=== PATIENT | female | born 1965 | race Caucasian/White ===

== ENCOUNTER 2016-12-14 05:30 | Inpatient (IN) | payer OTHER ==
[~2016-12-14] VITALS: Ht 167.6 cm; Wt 69.9 kg
[2016-12-14] VITALS (11 sets, daily range): BP systolic 100–117; BP diastolic 49–69; PULSE 89–97; RESP 12–25; TEMP 97.6–97.8; O2SAT 89–96
[2016-12-14] MEDS ORDERED: CEFAZOLIN SOD 1 GM/ ISO 50 ML PREMIX IV ONE (07:00)
[2016-12-14] MEDS: ALBUTEROL SULFATE 0.083% 2.5 MG/3 ML VIAL.NEB INH SCH ×3 (08:00→19:56)
[2016-12-14] MEDS ORDERED: IPRATROPIUM/ALBUTEROL SULFATE 3 ML AMPUL.NEB INH ONE (08:00)
[2016-12-14] MEDS ORDERED: ALBUTEROL SULFATE 0.083% 2.5 MG/3 ML VIAL.NEB INH ONE (08:03)
[2016-12-14] MEDS ORDERED: IPRATROPIUM BROM 0.5 MG/2.5 ML VIAL.NEB (ATROVENT) INH ONE (08:03)
[2016-12-14] MEDS ORDERED: NORT75CA PO (08:22)
[2016-12-14] MEDS ORDERED: HYDR-4100 PO (08:22)
[2016-12-14] MEDS ORDERED: LISI-209 PO (08:22)
[2016-12-14] MEDS ORDERED: PREG75CA PO (08:22)
[2016-12-14] MEDS ORDERED: OMEP40CA33 PO (08:22)
[2016-12-14] MEDS ORDERED: PRO20 PO (08:22)
[2016-12-14] MEDS ORDERED: FURO-149 PO (08:22)
[2016-12-14] MEDS ORDERED: LEVO112T2 PO (08:22)
[2016-12-14] MEDS ORDERED: KETAMINE HCL 500 MG/10 ML VIAL ONE ×2 (08:45→16:00)
[2016-12-14] MEDS ORDERED: IOHEXOL 50 ML IV ONE (09:49)
[2016-12-14 10:12] LABS: ABG TOTAL HEMOGLOBIN 10.5 G/dL (12.0-18.0); BLOOD GAS BASE EXCESS -0.8 mmol/L (-3.0-3.0); BLOOD GAS COHb% 0.8 % (0.5-1.5); BLOOD GAS PH 7.439 (7.350-7.450); BLOOD O2Hb% 98.1 % (94.0-97.0)
[2016-12-14 11:51] LABS: ABG TOTAL HEMOGLOBIN 9.8 G/dL (12.0-18.0); BLOOD GAS COHb% 0.9 % (0.5-1.5); BLOOD GAS PH 7.418 (7.350-7.450)
[2016-12-14] MEDS ORDERED: HYDROcodone/ACETAMIN 5-325 MG TAB (NORCO/ VICODIN) PO PRN (12:00)
[2016-12-14 12:18] LABS: HEMOGLOBIN 9.6 g/dL (12.0-16.0)
[2016-12-14 12:26] LABS: CALCIUM 9.1 mg/dL (8.4-11.0); CREATININE 1.07 mg/dL (0.55-1.30); POTASSIUM 4.6 mmol/L (3.5-5.1)
[2016-12-14] MEDS: CEFAZOLIN 1 GM IVPB PREMIX 50 ML IV SCH ×2 (14:14→22:01)
[2016-12-14] MEDS: HYDROmorphone 1 MG INJ. 1 MG/ML AMPUL IVP PRN ×3 (14:15→23:44)
[2016-12-14] MEDS: D5/0.45 NS 1,000 ML IV SCH ×2 (14:22→22:02)
[2016-12-14] MEDS ORDERED: fentaNYL CITRATE/PF 100 MCG/2 ML AMP ONE (16:00)
[2016-12-14] MEDS ORDERED: BUPIVACAINE /PF 0.25% 30 ML VIAL INJ ONE (16:00)
[2016-12-14] MEDS ORDERED: LR 1,000 ML IV.SOLN IV ONE (16:00)
[2016-12-14] MEDS ORDERED: DEXAMETHASONE SOD PHOSPHATE 4 MG/ML VIAL ONE (16:00)
[2016-12-14] MEDS ORDERED: SUCCINYLCHOLINE CHLORIDE 20 MG/ML(QUELICIN) ONE (16:00)
[2016-12-14] MEDS ORDERED: ROCURONIUM BROMIDE 10 MG/ML (ZEMURON) ONE (16:00)
[2016-12-14] MEDS ORDERED: MIDAZOLAM HCL 5 MG/5 ML VIAL ONE (16:00)
[2016-12-14] MEDS ORDERED: SEVOFLURANE 15 MIN GAS INH ONE (16:00)
[2016-12-14] MEDS ORDERED: PROPOFOL 200MG/ 20ML VIAL (DIPRIVAN) IV ONE (16:00)
[2016-12-14 20:18] LABS: HEMOGLOBIN 9.3 g/dL (12.0-16.0)
[2016-12-14] MEDS: FAMOTIDINE PF 20 MG/2 ML VIAL IVP SCH (20:46)
[2016-12-15] VITALS (15 sets, daily range): BP systolic 96–129; BP diastolic 53–66; PULSE 92–108; RESP 12–24; TEMP 96.6–98.1; O2SAT 89–99
[2016-12-15] MEDS: ALBUTEROL SULFATE 0.083% 2.5 MG/3 ML VIAL.NEB INH SCH ×2 (00:01→07:09)
[2016-12-15] MEDS: HYDROmorphone 1 MG INJ. 1 MG/ML AMPUL IVP PRN ×2 (02:38→05:07)
[2016-12-15 04:43] LABS: ALBUMIN 3.6 g/dL (3.4-4.8); CALCIUM 8.9 mg/dL (8.4-11.0); CREATININE 0.93 mg/dL (0.55-1.30); POTASSIUM 4.9 mmol/L (3.5-5.1); TOTAL PROTEIN, SERUM 7.3 g/dL (6.4-8.3)
[2016-12-15 05:11] LABS: BASOPHILS % (AUTO) 0.1 % (0.0-2.0); EOSINOPHILS % (AUTO) 0.2 % (0.0-4.0); HEMATOCRIT 29.5 % (36-48); HEMOGLOBIN 9.2 g/dL (12.0-16.0); LYMPHOCYTES # (AUTO) 1.5 K/uL (1.0-5.5); LYMPHOCYTES % (AUTO) 10.5 % (20.5-51.5); MEAN CORPUSCULAR HEMOGLOBIN 24 pg (27-31); MEAN CORPUSCULAR HGB CONC 31 % (32-36); MEAN CORPUSCULAR VOLUME 77 fL (79.0-98.0); MONOCYTES % (AUTO) 6.9 % (1.7-9.3); NEUTROPHILS # (AUTO) 12.2 K/uL (1.8-7.7); NEUTROPHILS % (AUTO) 82.3 % (40.0-70.0); PLATELET COUNT (AUTO) 213 K/uL (130-430); RED BLOOD CELL COUNT(AUTO) 3.82 MIL/uL (4.2-6.2); RED CELL DISTRIBUTION WIDTH 18.3 % (9.0-15.0); WHITE BLOOD COUNT (AUTO) 14.8 K/uL (4.8-10.8)
[2016-12-15] MEDS: D5/0.45 NS 1,000 ML IV SCH ×2 (08:49→18:50)
[2016-12-15] MEDS: FAMOTIDINE PF 20 MG/2 ML VIAL IVP SCH ×2 (09:26→20:17)
[2016-12-15] MEDS: HYDROcodone/ACETAMIN 5-325 MG TAB (NORCO/ VICODIN) PO PRN (10:33)
[2016-12-15 12:08] LABS: HEMATOCRIT 29.1 % (36-48); HEMOGLOBIN 9.2 g/dL (12.0-16.0)
[2016-12-15] MEDS ORDERED: IPRATROPIUM/ALBUTEROL SULFATE 3 ML AMPUL.NEB INH PRN (12:45)
[2016-12-15] MEDS ORDERED: FLUoxetine HCL 20 MG CAPSULE (PROzac) PO ONE (13:00)
[2016-12-15] MEDS ORDERED: LEVOTHYROXINE SODIUM 0.112 MG TABLET PO ONE (13:15)
[2016-12-15] MEDS ORDERED: NORTRIPTYLINE HCL 25 MG CAPSULE PO ONE (13:15)
[2016-12-15] MEDS: PREGABALIN 25 MG CAPSULE (LYRICA) PO SCH ×3 (14:22→20:18)
[2016-12-15] MEDS: IPRATROPIUM/ALBUTEROL SULFATE 3 ML AMPUL.NEB INH SCH ×2 (15:59→19:39)
[2016-12-15] MEDS: NORTRIPTYLINE HCL 25 MG CAPSULE PO SCH (20:18)
[2016-12-16] VITALS (7 sets, daily range): BP systolic 100–135; BP diastolic 46–80; PULSE 99–113; RESP 16–20; TEMP 96.6–98.6; O2SAT 90–95
[2016-12-16] MEDS: D5/0.45 NS 1,000 ML IV SCH ×2 (05:33→21:18)
[2016-12-16] MEDS: LEVOTHYROXINE SODIUM 0.112 MG TABLET PO SCH (06:05)
[2016-12-16 06:23] LABS: BASOPHILS # (AUTO) 0.1 K/uL (0.0-0.2); BASOPHILS % (AUTO) 0.5 % (0.0-2.0); EOSINOPHILS # (AUTO) 0.1 K/uL (0.0-0.4); EOSINOPHILS % (AUTO) 0.6 % (0.0-4.0); HEMATOCRIT 30.8 % (36-48); HEMOGLOBIN 9.6 g/dL (12.0-16.0); LYMPHOCYTES # (AUTO) 2.4 K/uL (1.0-5.5); LYMPHOCYTES % (AUTO) 13.5 % (20.5-51.5); MEAN CORPUSCULAR HEMOGLOBIN 24 pg (27-31); MEAN CORPUSCULAR HGB CONC 31 % (32-36); MEAN CORPUSCULAR VOLUME 77 fL (79.0-98.0); MONOCYTES # (AUTO) 1.5 K/uL (0.0-1.0); MONOCYTES % (AUTO) 8.5 % (1.7-9.3); NEUTROPHILS # (AUTO) 13.8 K/uL (1.8-7.7); PLATELET COUNT (AUTO) 223 K/uL (130-430); RED BLOOD CELL COUNT(AUTO) 3.99 MIL/uL (4.2-6.2); RED CELL DISTRIBUTION WIDTH 18.3 % (9.0-15.0); WHITE BLOOD COUNT (AUTO) 17.9 K/uL (4.8-10.8)
[2016-12-16 06:30] LABS: ALBUMIN 3.5 g/dL (3.4-4.8); CREATININE 0.89 mg/dL (0.55-1.30); POTASSIUM 4.2 mmol/L (3.5-5.1); TOTAL BILIRUBIN 1.8 mg/dL (0.0-1.0); TOTAL PROTEIN, SERUM 7.2 g/dL (6.4-8.3)
[2016-12-16] MEDS: IPRATROPIUM/ALBUTEROL SULFATE 3 ML AMPUL.NEB INH SCH ×4 (07:03→20:10)
[2016-12-16 08:27] LABS: NEUTROPHILS % (AUTO) 76.9 % (40.0-70.0)
[2016-12-16] MEDS: PREGABALIN 25 MG CAPSULE (LYRICA) PO SCH ×4 (09:08→21:14)
[2016-12-16] MEDS: FAMOTIDINE PF 20 MG/2 ML VIAL IVP SCH ×2 (09:12→21:14)
[2016-12-16] MEDS: NORTRIPTYLINE HCL 25 MG CAPSULE PO SCH ×2 (09:25→21:13)
[2016-12-16] MEDS: FLUoxetine HCL 20 MG CAPSULE (PROzac) PO SCH (09:25)
[2016-12-16] MEDS: ONDANSETRON HCL 4 MG/2 ML VIAL IVP PRN ×2 (10:46→21:17)
[2016-12-16] MEDS: HYDROcodone/ACETAMIN 5-325 MG TAB (NORCO/ VICODIN) PO PRN (10:55)
[2016-12-16] MEDS ORDERED: MILK OF MAGNESIA 30 ML UDC PO ONE (22:15)
[2016-12-17] MEDS: D5/0.45 NS 1,000 ML IV SCH (00:02)
[2016-12-17 00:20] VITALS: BP 111/73; PULSE 89; RESP 18; TEMP 98.2; O2SAT 91
[2016-12-17] MEDS: HYDROcodone/ACETAMIN 5-325 MG TAB (NORCO/ VICODIN) PO PRN ×5 (01:03→11:52)
[2016-12-17 03:34] VITALS: BP 136/84; PULSE 99; RESP 18; TEMP 98.4
[2016-12-17] MEDS: ONDANSETRON HCL 4 MG/2 ML VIAL IVP PRN ×3 (04:56→21:43)
[2016-12-17] MEDS: LEVOTHYROXINE SODIUM 0.112 MG TABLET PO SCH (06:07)
[2016-12-17 06:23] LABS: ALBUMIN 3.3 g/dL (3.4-4.8); CALCIUM 8.9 mg/dL (8.4-11.0); CREATININE 0.83 mg/dL (0.55-1.30); TOTAL BILIRUBIN 1.6 mg/dL (0.0-1.0); TOTAL PROTEIN, SERUM 7.1 g/dL (6.4-8.3)
[2016-12-17 06:24] LABS: BASOPHILS # (AUTO) 0.1 K/uL (0.0-0.2); BASOPHILS % (AUTO) 0.3 % (0.0-2.0); EOSINOPHILS % (AUTO) 0.2 % (0.0-4.0); HEMATOCRIT 27.6 % (36-48); HEMOGLOBIN 8.4 g/dL (12.0-16.0); LYMPHOCYTES # (AUTO) 1.8 K/uL (1.0-5.5); LYMPHOCYTES % (AUTO) 10.2 % (20.5-51.5); MEAN CORPUSCULAR HEMOGLOBIN 23 pg (27-31); MEAN CORPUSCULAR HGB CONC 30 % (32-36); MEAN CORPUSCULAR VOLUME 76 fL (79.0-98.0); MONOCYTES # (AUTO) 1.4 K/uL (0.0-1.0); MONOCYTES % (AUTO) 7.7 % (1.7-9.3); NEUTROPHILS # (AUTO) 14.5 K/uL (1.8-7.7); NEUTROPHILS % (AUTO) 81.6 % (40.0-70.0); PLATELET COUNT (AUTO) 232 K/uL (130-430); RED BLOOD CELL COUNT(AUTO) 3.62 MIL/uL (4.2-6.2); RED CELL DISTRIBUTION WIDTH 17.9 % (9.0-15.0); WHITE BLOOD COUNT (AUTO) 17.8 K/uL (4.8-10.8)
[2016-12-17] MEDS: IPRATROPIUM/ALBUTEROL SULFATE 3 ML AMPUL.NEB INH SCH ×4 (07:00→19:00)
[2016-12-17 08:00] VITALS: BP 140/85; PULSE 104; RESP 18; TEMP 97.6; O2SAT 92
[2016-12-17] MEDS: LACTULOSE 20 GM/30 ML UDC PO SCH ×2 (09:16→21:54)
[2016-12-17] MEDS: FAMOTIDINE PF 20 MG/2 ML VIAL IVP SCH ×2 (09:16→21:47)
[2016-12-17] MEDS: FLUoxetine HCL 20 MG CAPSULE (PROzac) PO SCH (09:16)
[2016-12-17] MEDS: PREGABALIN 25 MG CAPSULE (LYRICA) PO SCH ×3 (09:16→21:48)
[2016-12-17] MEDS: NORTRIPTYLINE HCL 25 MG CAPSULE PO SCH ×2 (09:19→21:50)
[2016-12-17 12:00] VITALS: BP 129/76; PULSE 105; RESP 20; TEMP 97.7; O2SAT 92
[2016-12-17 12:12] VITALS: Ht 167.6 cm; Wt 69.9 kg
[2016-12-17] MEDS ORDERED: BISACODYL 10 MG/SUPPOSITORY RC ONE (14:30)
[2016-12-17 16:00] VITALS: BP 102/90; PULSE 84; RESP 16; TEMP 98; O2SAT 97
[2016-12-17] MEDS ORDERED: NA PHOS,M-B/NA PHOS,DI-BA 118 ML (FLEET ENEMA) RC ONE (16:30)
[2016-12-17 20:00] VITALS: BP 133/81; PULSE 103; RESP 19; TEMP 97.9; O2SAT 94
[2016-12-17] MEDS ORDERED: MILK OF MAGNESIA 30 ML UDC PO PRN (22:15)
[2016-12-18] VITALS (12 sets, daily range): BP systolic 80–139; BP diastolic 57–86; PULSE 74–110; RESP 16–26; TEMP 96.4–98; O2SAT 92–98
[2016-12-18] MEDS: ONDANSETRON HCL 4 MG/2 ML VIAL IVP PRN (02:26)
[2016-12-18 05:54] LABS: BASOPHILS % (AUTO) 0.2 % (0.0-2.0); EOSINOPHILS % (AUTO) 0.2 % (0.0-4.0); HEMATOCRIT 25.9 % (36-48); HEMOGLOBIN 8.1 g/dL (12.0-16.0); LYMPHOCYTES # (AUTO) 2.2 K/uL (1.0-5.5); LYMPHOCYTES % (AUTO) 12.3 % (20.5-51.5); MEAN CORPUSCULAR HEMOGLOBIN 24 pg (27-31); MEAN CORPUSCULAR HGB CONC 31 % (32-36); MEAN CORPUSCULAR VOLUME 76 fL (79.0-98.0); MONOCYTES # (AUTO) 1.7 K/uL (0.0-1.0); MONOCYTES % (AUTO) 9.2 % (1.7-9.3); NEUTROPHILS # (AUTO) 14.3 K/uL (1.8-7.7); NEUTROPHILS % (AUTO) 78.1 % (40.0-70.0); PLATELET COUNT (AUTO) 280 K/uL (130-430); RED BLOOD CELL COUNT(AUTO) 3.42 MIL/uL (4.2-6.2); RED CELL DISTRIBUTION WIDTH 18.7 % (9.0-15.0); WHITE BLOOD COUNT (AUTO) 18.2 K/uL (4.8-10.8)
[2016-12-18 06:12] LABS: CALCIUM 8.8 mg/dL (8.4-11.0); CHLORIDE 101 mmol/L (98-107); CREATININE 0.87 mg/dL (0.55-1.30); GLUCOSE 122 mg/dL (70-99); POTASSIUM 3.3 mmol/L (3.5-5.1); SODIUM SERUM 133 mmol/L (136-145); THYROID STIMULATING HORMONE 2.11 uIu/mL (0.34-4.82); UREA NITROGEN, BLOOD 16 mg/dL (8-21)
[2016-12-18 06:13] LABS: GFR AFRICAN AMERICAN 88 mL/min (>90)
[2016-12-18 06:14] LABS: ANION GAP < 3 (5-15)
[2016-12-18] MEDS: LEVOTHYROXINE SODIUM 0.112 MG TABLET PO SCH (07:00)
[2016-12-18] MEDS: IPRATROPIUM/ALBUTEROL SULFATE 3 ML AMPUL.NEB INH SCH ×3 (07:37→15:00)
[2016-12-18 09:03] LABS: INR 1.2 (0.8-1.2)
[2016-12-18] MEDS ORDERED: DIATR MEGLU/DIATRIZ SOD 30 ML SOLUTION PO ONE (09:08)
[2016-12-18] MEDS: KCL 20 mEq in D5/0.45NS 1000mL 1,000 ML IV SCH ×2 (12:35→18:45)
[2016-12-18] MEDS: cefOXitin SODIUM 1 GM in D5W 50 ML IV SCH ×3 (12:35→23:38)
[2016-12-18] MEDS: HYDROmorphone 1 MG INJ. 1 MG/ML AMPUL IVP PRN (12:40)
[2016-12-18] MEDS: FAMOTIDINE PF 20 MG/2 ML VIAL IVP SCH ×2 (12:48→20:55)
[2016-12-18] MEDS ORDERED: NS 500 ML IV ONE (16:00)
[2016-12-18] MEDS: LACTULOSE 20 GM/30 ML UDC PO SCH (20:56)
[2016-12-18] MEDS: NORTRIPTYLINE HCL 25 MG CAPSULE PO SCH (20:56)
[2016-12-18 23:48] LABS: BILIRUBIN,URINE 2+ (NEGATIVE); BLOOD, URINE NEGATIVE (NEGATIVE); CLARITY/URINE CLOUDY (CLEAR); COLOR,URINE YELLOW (YELLOW); GLUCOSE,URINE NEGATIVE (NEGATIVE); KETONES,URINE 1+ (NEGATIVE); LEUKOCYTE ESTERASE ,URINE NEGATIVE (NEGATIVE); NITRITE, URINE NEGATIVE (NEGATIVE); PROTEIN URINE TRACE (NEGATIVE); UROBILINOGEN,URINE >=8 (0.2-1.0)
[2016-12-18 23:53] LABS: BACTERIA,URINE MANY /HPF (None Seen); RBC,URINE NONE SEEN /HPF (0-3)
[2016-12-18 23:54] LABS: URINE AMORPHOUS URATE 3+ /HPF (None Seen)
[2016-12-18 23:55] LABS: MUCUS,URINE None Seen /LPF (None Seen)
[2016-12-19 00:24] VITALS: BP 104/63; PULSE 87; RESP 17; TEMP 98.4; O2SAT 95
[2016-12-19 04:00] VITALS: BP 136/84; PULSE 78; RESP 18; TEMP 97.8; O2SAT 98
[2016-12-19] MEDS: KCL 20 mEq in D5/0.45NS 1000mL 1,000 ML IV SCH ×3 (04:23→20:51)
[2016-12-19] MEDS: cefOXitin SODIUM 1 GM in D5W 50 ML IV SCH ×3 (06:04→17:13)
[2016-12-19] MEDS: LEVOTHYROXINE SODIUM 0.112 MG TABLET PO SCH (06:04)
[2016-12-19 06:30] VITALS: BP 105/59; PULSE 93; RESP 20; TEMP 97.6; O2SAT 95
[2016-12-19 06:44] LABS: BASOPHILS # (AUTO) 0.2 K/uL (0.0-0.2); EOSINOPHILS # (AUTO) 0.1 K/uL (0.0-0.4); EOSINOPHILS % (AUTO) 0.4 % (0.0-4.0); HEMATOCRIT 26.3 % (36-48); HEMOGLOBIN 8.2 g/dL (12.0-16.0); LYMPHOCYTES # (AUTO) 2.4 K/uL (1.0-5.5); LYMPHOCYTES % (AUTO) 13.8 % (20.5-51.5); MEAN CORPUSCULAR HEMOGLOBIN 24 pg (27-31); MEAN CORPUSCULAR HGB CONC 31 % (32-36); MEAN CORPUSCULAR VOLUME 77 fL (79.0-98.0); MONOCYTES # (AUTO) 1.6 K/uL (0.0-1.0); MONOCYTES % (AUTO) 9.1 % (1.7-9.3); NEUTROPHILS % (AUTO) 75.7 % (40.0-70.0); PLATELET COUNT (AUTO) 233 K/uL (130-430); RED BLOOD CELL COUNT(AUTO) 3.41 MIL/uL (4.2-6.2); RED CELL DISTRIBUTION WIDTH 17.8 % (9.0-15.0); WHITE BLOOD COUNT (AUTO) 17.3 K/uL (4.8-10.8)
[2016-12-19 06:58] LABS: ALANINE AMINOTRANSFERASE 27 U/L (12-78); ALBUMIN 2.6 g/dL (3.4-4.8); ASPARTATE AMINOTRANSFERASE 31 U/L (10-37); CALCIUM 8.2 mg/dL (8.4-11.0); CHLORIDE 104 mmol/L (98-107); CREATININE 0.96 mg/dL (0.55-1.30); GLUCOSE 132 mg/dL (70-99); POTASSIUM 3.4 mmol/L (3.5-5.1); SODIUM SERUM 135 mmol/L (136-145); TOTAL BILIRUBIN 1.5 mg/dL (0.0-1.0); TOTAL PROTEIN, SERUM 6.1 g/dL (6.4-8.3); UREA NITROGEN, BLOOD 19 mg/dL (8-21)
[2016-12-19] MEDS: IPRATROPIUM/ALBUTEROL SULFATE 3 ML AMPUL.NEB INH SCH ×4 (07:00→20:07)
[2016-12-19 07:06] LABS: INR 1.2 (0.8-1.2); PROTHROMBIN TIME 12.8 SECS (9.5-12.5)
[2016-12-19 07:16] LABS: ANION GAP < 3 (5-15); GFR AFRICAN AMERICAN 78 mL/min (>90)
[2016-12-19] MEDS: NACL 0.9% 1,000 ML IV SCH ×2 (08:10→09:06)
[2016-12-19] MEDS ORDERED: ONDANSETRON HCL 4 MG/2 ML VIAL IVP PRN (08:15)
[2016-12-19] MEDS ORDERED: HYDROmorphone 1 MG INJ. 1 MG/ML AMPUL IVP PRN (08:15)
[2016-12-19] MEDS ORDERED: HYDROmorphone 2 MG/ML VIAL IVP PRN ×2 (08:15)
[2016-12-19] MEDS: LACTULOSE 20 GM/30 ML UDC PO SCH ×2 (09:00→20:51)
[2016-12-19] MEDS: NORTRIPTYLINE HCL 25 MG CAPSULE PO SCH ×2 (09:00→20:51)
[2016-12-19] MEDS: FAMOTIDINE PF 20 MG/2 ML VIAL IVP SCH ×2 (09:00→20:51)
[2016-12-19 11:07] LABS: HEPATITIS B CORE AB, TOTAL Negative (Negative); HEPATITIS B SURFACE AG Negative (Negative); HEPATITIS C VIRUS AB <0.1 s/co ratio (0.0-0.9)
[2016-12-19] MEDS: HYDROmorphone 1 MG INJ. 1 MG/ML AMPUL IVP PRN (11:58)
[2016-12-19 12:32] VITALS: BP 118/72; PULSE 90; RESP 18; TEMP 97.4; O2SAT 98
[2016-12-19] MEDS ORDERED: ROCURONIUM BROMIDE 10 MG/ML (ZEMURON) ONE (14:00)
[2016-12-19] MEDS ORDERED: fentaNYL CITRATE 250 MCG/5 ML AMP ONE (14:00)
[2016-12-19] MEDS ORDERED: NS IRRIG SOLN 1000 ML IR ONE (14:00)
[2016-12-19] MEDS ORDERED: ONDANSETRON HCL 4 MG/2 ML VIAL ONE (14:00)
[2016-12-19] MEDS ORDERED: BUPIVACAINE /PF 0.25% 30 ML VIAL INJ ONE (14:00)
[2016-12-19] MEDS ORDERED: DEXAMETHASONE SOD PHOSPHATE 4 MG/ML VIAL ONE (14:00)
[2016-12-19] MEDS ORDERED: LR 1,000 ML IV.SOLN IV ONE (14:00)
[2016-12-19] MEDS ORDERED: SEVOFLURANE 15 MIN GAS INH ONE (14:00)
[2016-12-19] MEDS ORDERED: NS 1000 ML BAG IV ONE (14:00)
[2016-12-19] MEDS ORDERED: PROPOFOL 200MG/ 20ML VIAL (DIPRIVAN) IV ONE (14:00)
[2016-12-19] MEDS ORDERED: MIDAZOLAM HCL 5 MG/5 ML VIAL ONE (14:00)
[2016-12-19 17:04] VITALS: BP 103/56; PULSE 90; RESP 18; TEMP 97.2; O2SAT 90
[2016-12-19 20:00] VITALS: BP 97/68; PULSE 93; RESP 20; O2SAT 93
[2016-12-20] MEDS: cefOXitin SODIUM 1 GM in D5W 50 ML IV SCH ×2 (00:51→06:06)
[2016-12-20 01:09] VITALS: BP 92/57; PULSE 88; RESP 20; TEMP 98; O2SAT 95
[2016-12-20 04:08] VITALS: BP 97/53; PULSE 83; RESP 16; TEMP 96.1; O2SAT 97
[2016-12-20] MEDS: LEVOTHYROXINE SODIUM 0.112 MG TABLET PO SCH (06:06)
[2016-12-20 06:48] LABS: BASOPHILS # (AUTO) 0.1 K/uL (0.0-0.2); BASOPHILS % (AUTO) 0.3 % (0.0-2.0); HEMOGLOBIN 9.4 g/dL (12.0-16.0); LYMPHOCYTES # (AUTO) 1.8 K/uL (1.0-5.5); LYMPHOCYTES % (AUTO) 9.7 % (20.5-51.5); MEAN CORPUSCULAR HEMOGLOBIN 26 pg (27-31); MEAN CORPUSCULAR HGB CONC 32 % (32-36); MEAN CORPUSCULAR VOLUME 80 fL (79.0-98.0); MONOCYTES # (AUTO) 1.1 K/uL (0.0-1.0); MONOCYTES % (AUTO) 5.8 % (1.7-9.3); NEUTROPHILS % (AUTO) 84.2 % (40.0-70.0); PLATELET COUNT (AUTO) 210 K/uL (130-430); RED BLOOD CELL COUNT(AUTO) 3.65 MIL/uL (4.2-6.2); RED CELL DISTRIBUTION WIDTH 18.6 % (9.0-15.0)
[2016-12-20 07:20] LABS: CALCIUM 8.2 mg/dL (8.4-11.0); CREATININE 0.83 mg/dL (0.55-1.30); POTASSIUM 4.1 mmol/L (3.5-5.1)
[2016-12-20] MEDS: IPRATROPIUM/ALBUTEROL SULFATE 3 ML AMPUL.NEB INH SCH ×2 (07:35→19:56)
[2016-12-20 07:37] LABS: ALBUMIN 2.6 g/dL (3.4-4.8); TOTAL BILIRUBIN 1.6 mg/dL (0.0-1.0); TOTAL PROTEIN, SERUM 5.8 g/dL (6.4-8.3)
[2016-12-20 08:00] VITALS: BP 111/66; PULSE 83; RESP 15; TEMP 97.2; O2SAT 100
[2016-12-20] MEDS: KCL 20 mEq in D5/0.45NS 1000mL 1,000 ML IV SCH (08:04)
[2016-12-20] MEDS: LACTULOSE 20 GM/30 ML UDC PO SCH (09:11)
[2016-12-20] MEDS: FAMOTIDINE PF 20 MG/2 ML VIAL IVP SCH ×2 (09:11→21:03)
[2016-12-20] MEDS: NORTRIPTYLINE HCL 25 MG CAPSULE PO SCH (09:12)
[2016-12-20 12:18] VITALS: BP 109/62; PULSE 86; RESP 17; TEMP 97.5; O2SAT 100
[2016-12-20] MEDS: metroNIDAZOLE 500 mg/NS 100 ML IV SCH ×2 (15:05→22:23)
[2016-12-20] MEDS: PIPERACILLIN/TAZO 4.5GM/DEX-IS 100 ML IV SCH ×2 (15:30→23:28)
[2016-12-20 16:24] VITALS: BP 111/67; PULSE 89; RESP 18; TEMP 97.8; O2SAT 100
[2016-12-20] MEDS ORDERED: D5NS 1,000 ML IV ONE (20:00)
[2016-12-20 20:10] VITALS: BP 130/75; PULSE 89; RESP 16; TEMP 98; O2SAT 95
[2016-12-20] MEDS: KCL 20 mEq in D5NS 1000 mL 1,000 ML IV SCH (21:03)
[2016-12-20] MEDS: ALBUMIN HUMAN 25% 50 ML IV SCH (21:03)
[2016-12-20] MEDS: HYDROmorphone 1 MG INJ. 1 MG/ML AMPUL IVP PRN (23:03)
[2016-12-21 00:41] VITALS: BP 116/66; PULSE 82; RESP 18; TEMP 98; O2SAT 100
[2016-12-21 04:23] VITALS: BP 126/78; PULSE 114; RESP 17; TEMP 98.4; O2SAT 99
[2016-12-21] MEDS: ALBUMIN HUMAN 25% 50 ML IV SCH ×2 (04:42→12:25)
[2016-12-21] MEDS: metroNIDAZOLE 500 mg/NS 100 ML IV SCH ×3 (05:36→21:20)
[2016-12-21] MEDS: KCL 20 mEq in D5NS 1000 mL 1,000 ML IV SCH ×2 (06:00→16:00)
[2016-12-21 06:32] LABS: CREATININE 0.9 mg/dL (0.55-1.30)
[2016-12-21] MEDS: PIPERACILLIN/TAZO 4.5GM/DEX-IS 100 ML IV SCH ×3 (06:37→22:44)
[2016-12-21] MEDS: LEVOTHYROXINE SODIUM 0.112 MG TABLET PO SCH (06:37)
[2016-12-21 06:42] LABS: BASOPHILS # (AUTO) 0.1 K/uL (0.0-0.2); BASOPHILS % (AUTO) 0.4 % (0.0-2.0); EOSINOPHILS # (AUTO) 0.2 K/uL (0.0-0.4); HEMATOCRIT 29.9 % (36-48); HEMOGLOBIN 9.3 g/dL (12.0-16.0); LYMPHOCYTES % (AUTO) 16.9 % (20.5-51.5); MEAN CORPUSCULAR HEMOGLOBIN 25 pg (27-31); MEAN CORPUSCULAR HGB CONC 31 % (32-36); MEAN CORPUSCULAR VOLUME 80 fL (79.0-98.0); MONOCYTES # (AUTO) 1.4 K/uL (0.0-1.0); MONOCYTES % (AUTO) 7.6 % (1.7-9.3); NEUTROPHILS # (AUTO) 13.3 K/uL (1.8-7.7); NEUTROPHILS % (AUTO) 74.1 % (40.0-70.0); PLATELET COUNT (AUTO) 224 K/uL (130-430); RED BLOOD CELL COUNT(AUTO) 3.73 MIL/uL (4.2-6.2); RED CELL DISTRIBUTION WIDTH 18.7 % (9.0-15.0)
[2016-12-21] MEDS: IPRATROPIUM/ALBUTEROL SULFATE 3 ML AMPUL.NEB INH SCH ×4 (07:00→21:06)
[2016-12-21] MEDS: LACTOBACILLUS RHAMNOSUS GG 1 CAP CAPSULE PO SCH ×2 (09:30→21:19)
[2016-12-21] MEDS: FAMOTIDINE PF 20 MG/2 ML VIAL IVP SCH ×2 (09:30→21:19)
[2016-12-21] MEDS: HYDROmorphone 1 MG INJ. 1 MG/ML AMPUL IVP PRN (10:47)
[2016-12-21 12:59] VITALS: BP 114/65; PULSE 91; RESP 16; TEMP 97.8; O2SAT 92
[2016-12-21] MEDS ORDERED: NORMAL SALINE 10 ML VIAL INJ ONE (17:15)
[2016-12-21 17:18] VITALS: BP 114/65; PULSE 91
[2016-12-21] MEDS ORDERED: NS 250 ML IV ONE (17:45)
[2016-12-21 20:00] VITALS: BP 116/61; PULSE 90; RESP 20; TEMP 98.3; O2SAT 93
[2016-12-21 21:56] LABS: BLOOD, URINE 3+ (NEGATIVE); CLARITY/URINE HAZY (CLEAR); COLOR,URINE AMBER (YELLOW); GLUCOSE,URINE NEGATIVE (NEGATIVE); KETONES,URINE TRACE (NEGATIVE); LEUKOCYTE ESTERASE ,URINE NEGATIVE (NEGATIVE); NITRITE, URINE NEGATIVE (NEGATIVE); PROTEIN URINE 2+ (NEGATIVE)
[2016-12-21 22:40] LABS: BILIRUBIN,URINE NEGATIVE (NEGATIVE)
[2016-12-21 22:41] LABS: RBC,URINE >100 /HPF (0-3)
[2016-12-21 22:42] LABS: BACTERIA,URINE FEW /HPF (None Seen); MUCUS,URINE None Seen /LPF (None Seen); WBC,URINE 0-3 /HPF (0-3)
[2016-12-21 22:43] LABS: URIC ACID CRYSTALS,URINE 0-10 /HPF (None Seen)
[2016-12-22] VITALS (7 sets, daily range): BP systolic 103–136; BP diastolic 64–76; PULSE 61–98; RESP 16–21; TEMP 96.6–98.3; O2SAT 92–99
[2016-12-22 03:06] LABS: AFP, TUMOR MARKER 2.2 ng/mL (0.0-8.3); CEA 4.6 ng/mL (0.0-4.7)
[2016-12-22 05:13] LABS: FERRITIN 52 ng/mL (15-150)
[2016-12-22] MEDS: PIPERACILLIN/TAZO 4.5GM/DEX-IS 100 ML IV SCH ×3 (05:13→21:14)
[2016-12-22] MEDS: LEVOTHYROXINE SODIUM 0.112 MG TABLET PO SCH (06:06)
[2016-12-22] MEDS: metroNIDAZOLE 500 mg/NS 100 ML IV SCH ×3 (06:06→21:14)
[2016-12-22] MEDS: IPRATROPIUM/ALBUTEROL SULFATE 3 ML AMPUL.NEB INH SCH ×4 (07:07→19:00)
[2016-12-22] MEDS ORDERED: ACETAMINOPHEN 325 MG TABLET PO PRN (08:30)
[2016-12-22 09:14] LABS: HEMATOCRIT 30.8 % (36-48); HEMOGLOBIN 9.5 g/dL (12.0-16.0); MEAN CORPUSCULAR HEMOGLOBIN 25 pg (27-31); MEAN CORPUSCULAR HGB CONC 31 % (32-36); MEAN CORPUSCULAR VOLUME 80 fL (79.0-98.0); PLATELET COUNT (AUTO) 237 K/uL (130-430); RED BLOOD CELL COUNT(AUTO) 3.83 MIL/uL (4.2-6.2); RED CELL DISTRIBUTION WIDTH 19.5 % (9.0-15.0); WHITE BLOOD COUNT (AUTO) 14.6 K/uL (4.8-10.8)
[2016-12-22 09:31] LABS: CALCIUM 8.2 mg/dL (8.4-11.0); CREATININE 0.83 mg/dL (0.55-1.30); POTASSIUM 3.8 mmol/L (3.5-5.1)
[2016-12-22 09:45] LABS: ATYPICAL LYMPHOCYTES % 4 % (0-0); BAND % (MANUAL) 3 % (0-6); BASOPHILS % (MANUAL) 0 % (0-2); EOSINOPHILS % (MANUAL) 1 % (0-7); LYMPHOCYTES % (MANUAL) 16 % (20-46); MONOCYTES % (MANUAL) 10 % (0-11)
[2016-12-22] MEDS: LACTOBACILLUS RHAMNOSUS GG 1 CAP CAPSULE PO SCH ×2 (10:15→20:10)
[2016-12-22] MEDS: FAMOTIDINE 20 MG TABLET PO SCH ×2 (10:15→20:10)
[2016-12-22] MEDS: KCL 20 mEq in D5NS 1000 mL 1,000 ML IV SCH (10:18)
[2016-12-22 16:53] LABS: BLOOD, URINE 3+ (NEGATIVE); CLARITY/URINE CLEAR (CLEAR); COLOR,URINE AMBER (YELLOW); GLUCOSE,URINE NEGATIVE (NEGATIVE); KETONES,URINE TRACE (NEGATIVE); LEUKOCYTE ESTERASE ,URINE NEGATIVE (NEGATIVE); NITRITE, URINE NEGATIVE (NEGATIVE); PH,URINE 5.5 (5.0-8.0); PROTEIN URINE 1+ (NEGATIVE)
[2016-12-22 16:59] LABS: UROBILINOGEN,URINE >=8 (0.2-1.0)
[2016-12-22 17:11] LABS: BILIRUBIN,URINE 1+ (NEGATIVE)
[2016-12-22 17:46] LABS: BACTERIA,URINE FEW /HPF (None Seen)
[2016-12-22 17:47] LABS: MUCUS,URINE 1+ /LPF (None Seen)
[2016-12-23] VITALS: BP 100/60; PULSE 85; RESP 18; TEMP 97.2; O2SAT 96
[2016-12-23] MEDS: KCL 20 mEq in D5NS 1000 mL 1,000 ML IV SCH (01:39)
[2016-12-23 04:06] VITALS: BP 122/82; PULSE 85; RESP 22; TEMP 97; O2SAT 94
[2016-12-23] MEDS: PIPERACILLIN/TAZO 4.5GM/DEX-IS 100 ML IV SCH (05:34)
[2016-12-23] MEDS: metroNIDAZOLE 500 mg/NS 100 ML IV SCH ×2 (05:34→14:30)
[2016-12-23 06:31] LABS: BASOPHILS # (AUTO) 0.1 K/uL (0.0-0.2); BASOPHILS % (AUTO) 0.7 % (0.0-2.0); EOSINOPHILS # (AUTO) 0.2 K/uL (0.0-0.4); EOSINOPHILS % (AUTO) 1.4 % (0.0-4.0); HEMATOCRIT 30.2 % (36-48); HEMOGLOBIN 9.4 g/dL (12.0-16.0); LYMPHOCYTES # (AUTO) 2.4 K/uL (1.0-5.5); LYMPHOCYTES % (AUTO) 16.7 % (20.5-51.5); MEAN CORPUSCULAR HEMOGLOBIN 25 pg (27-31); MEAN CORPUSCULAR HGB CONC 31 % (32-36); MEAN CORPUSCULAR VOLUME 80 fL (79.0-98.0); MONOCYTES # (AUTO) 1.2 K/uL (0.0-1.0); MONOCYTES % (AUTO) 8.4 % (1.7-9.3); NEUTROPHILS # (AUTO) 10.7 K/uL (1.8-7.7); NEUTROPHILS % (AUTO) 72.8 % (40.0-70.0); PLATELET COUNT (AUTO) 254 K/uL (130-430); RED BLOOD CELL COUNT(AUTO) 3.79 MIL/uL (4.2-6.2); RED CELL DISTRIBUTION WIDTH 19.2 % (9.0-15.0); WHITE BLOOD COUNT (AUTO) 14.6 K/uL (4.8-10.8)
[2016-12-23] MEDS: IPRATROPIUM/ALBUTEROL SULFATE 3 ML AMPUL.NEB INH SCH ×3 (06:34→15:21)
[2016-12-23] MEDS: LEVOTHYROXINE SODIUM 0.112 MG TABLET PO SCH (06:40)
[2016-12-23 06:41] LABS: ALBUMIN 2.8 g/dL (3.4-4.8); CALCIUM 8.4 mg/dL (8.4-11.0); CREATININE 0.71 mg/dL (0.55-1.30); TOTAL BILIRUBIN 1.3 mg/dL (0.0-1.0); TOTAL PROTEIN, SERUM 5.8 g/dL (6.4-8.3)
[2016-12-23] MEDS: LACTOBACILLUS RHAMNOSUS GG 1 CAP CAPSULE PO SCH (08:54)
[2016-12-23] MEDS: FAMOTIDINE 20 MG TABLET PO SCH (08:55)
[2016-12-23] MEDS ORDERED: FUROSEMIDE 40 MG TABLET PO SCH (09:00)
[2016-12-23] MEDS ORDERED: AMOXICILLIN/CLAVULANATE POTASSIUM 875 MG TABLET PO SCH (09:00)
[2016-12-23 10:42] VITALS: BP 116/73; PULSE 88; RESP 20; TEMP 97.6; O2SAT 94
[2016-12-23 12:00] VITALS: BP 132/72; PULSE 88; RESP 21; TEMP 97; O2SAT 91
[2016-12-23 14:08] LABS: ANTI NUCLEAR AB WITH REFLEX Positive (Negative)
[2016-12-23 16:00] VITALS: BP 125/78; PULSE 89; RESP 21; TEMP 96; O2SAT 93
[2016-12-23 16:15] VITALS: BP 125/78; PULSE 89; RESP 21; TEMP 96; O2SAT 93
== END 2016-12-23 16:50 | disposition home or self-care (01) | DRG 417 ==
LOC: SMU 05:30 → SDS 05:30 → SIC 11:57 → SMU 12-15 11:18 → STU 12-16 23:23 → SMU 12-16 23:29 → STU 12-18 15:58
PROVIDERS: ADMIT Internal Medicine; ATTEND Internal Medicine
PROC: 0FN44ZZ Release Gallbladder, Percutaneous Endoscopic Approach (ICD-10-PCS; 2016-12-14)
PROC: 0FT44ZZ Resection of Gallbladder, Percutaneous Endoscopic Approach (ICD-10-PCS; principal; 2016-12-14 07:30)
PROC: 30233N1 Transfusion of Nonautologous Red Blood Cells into Peripheral Vein, Percutaneous Approach (ICD-10-PCS; 2016-12-18)
PROC: 0FB04ZX Excision of Liver, Percutaneous Endoscopic Approach, Diagnostic (ICD-10-PCS; 2016-12-19)
PROC: 02HV33Z Insertion of Infusion Device into Superior Vena Cava, Percutaneous Approach (ICD-10-PCS; 2016-12-19)
PROC: B548ZZA Ultrasonography of Superior Vena Cava, Guidance (ICD-10-PCS; 2016-12-19)
PROC: 0W9G4ZZ Drainage of Peritoneal Cavity, Percutaneous Endoscopic Approach (ICD-10-PCS; 2016-12-19)
DX: K80.10 Calculus of gallbladder with chronic cholecystitis without obstruction (principal); K65.1 Peritoneal abscess; K31.1 Adult hypertrophic pyloric stenosis; J96.11 Chronic respiratory failure with hypoxia; K70.30 Alcoholic cirrhosis of liver without ascites; K82.8 Other specified diseases of gallbladder; G35 Multiple sclerosis; J44.9 Chronic obstructive pulmonary disease, unspecified; I27.2 Other secondary pulmonary hypertension; D64.9 Anemia, unspecified; Z99.81 Dependence on supplemental oxygen; Z87.891 Personal history of nicotine dependence
CPT/HCPCS: 36415; 36600; 71010; 74300; 76700-TC; 80048; 80053; 80076; 81000-TC; 82105; 82140-TC; 82378; 82728; 82803-TC; 83735-TC; 84443-TC; 85007; 85018-TC; 85025; 85027; 85610-TC; 85730-TC; 86038; 86301; 86704; 86708; 86803; 86886; 86900; 86901; 86920; 87081; 87086; 87340; 88304; 88307; 88313; 93005; 94640; 94760; 97110-GP; 97116-GP; 97530-GP; C1727; C1751; C1758; J0330; J0690; J0694; J1100; J1170; J2250; J2405; J2543; J2704; J3010; J3490; J7030; J7040; J7042; J7050; J7060; J7120; P9021; P9046; Q9964; Q9967